=== PATIENT | female | born 1990 | race Caucasian/White ===

== ENCOUNTER 2020-12-11 21:25 | Emergency (ER) | payer OTHER ==
--- NOTE | 2020-12-11 22:16 | EDM.PDOC ---
ED HPI GENERAL MEDICAL PROBLEM - General Chief Complaint: ENT Problem Stated Complaint: TOOTH PAIN Time Seen by Provider: 12/11/20 21:55 Source of Information: Reports: Patient History Limitations: Reports: No Limitations - History of Present Illness INITIAL COMMENTS - FREE TEXT/NARRATIVE: 30-year-old female with diffuse dental decay, diagnosed periodontal abscesses and the need for tooth extraction presents for pain control. She saw her dentist yesterday, they started her on penicillin which she filled today and started but they told her if she has significant pain she should go to the emergency room. She has no fevers or chills, no significant facial swelling, but the pain especially in the upper incisors and canines are persistent even after ibuprofen and Tylenol. Onset: Unknown/Unsure Duration: Chronic Improves with: Reports: Other (Ibuprofen helps minimally) Associated Symptoms: Reports: Malaise. 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: Musculoskeletal History: Reports: Fracture Neurological History: Reports: Brain Injury Psychiatric History: Reports: Anxiety, Depression - Infectious Disease History Infectious Disease History: Reports: Chicken Pox, Mononucleosis, Novel Coronavirus Social & Family History - Tobacco Use Tobacco Use Status *Q: Current Every Day Tobacco User Years of Tobacco use: 2 Packs/Tins Daily: 1 - Caffeine Use Caffeine Use: Reports: Energy Drinks - Recreational Drug Use Recreational Drug Use: Yes Drug Use in Last 12 Months: Yes Recreational Drug Type: Reports: Marijuana/Hashish Recreational Drug Use Frequency: Monthly ED ROS ENT - Review of Systems Review Of Systems: See Below Constitutional: Denies: Fever, Chills HEENT: Reports: Dental Pain Respiratory: Denies: Shortness of Breath Cardiovascular: Denies: Chest Pain GI/Abdominal: Denies: Nausea, Vomiting Skin: Reports: No Symptoms Neurological: Denies: Headache Psychiatric: Reports: No Symptoms ED EXAM, ENT - Physical Exam Exam: See Below Exam Limited By: No Limitations General Appearance: Alert, No Apparent Distress (Looks uncomfortable but not distressed) Mouth/Throat: Other (Widespread significant dental decay is present with gingival erythema and swelling especially of the maxillary front teeth) Course - Vital Signs Last Recorded V/S: Last Vital Signs Temp 97.5 F 12/11/20 21:54 Pulse 97 12/11/20 21:54 Resp 16 12/11/20 21:54 BP 116/62 12/11/20 21:54 Pulse Ox 96 12/11/20 21:54 - Re-Assessments/Exams Free Text/Narrative Re-Assessment/Exam: 12/12/20 01:28 Patient is going to continue her penicillin as prescribed, she was given 20 hydrocodone to use sparingly to cover extra pain not controlled with ibuprofen. A COMPUTING SYSTEMS MECHANIC search was done on this patient, no narcotics have been prescribed in the last year. She has a dental appointment in 2 weeks. Departure - Departure Time of Disposition: 22:17 Disposition: Home, Self-Care 01 Clinical Impression: Pain due to dental caries, Dental abscess - Discharge Information Instructions: Dental Abscess, [id number] Referrals: PCP,None [Primary Care Provider] - Forms: ED Department Discharge Care Plan Goals: Continue your antibiotic as prescribed, take Prilosec every day to protect her stomach and continue with ibuprofen and Tylenol for pain control. Add stronger pain medication as prescribed if needed and recheck if not improving satisfactorily in the next 3 or 4 days. Sepsis Event Note (ED) - Evaluation Sepsis Screening Result: No Definite Risk - Focused Exam Vital Signs: Vital Signs Temp Pulse Resp BP Pulse Ox 12/11/20 21:54 97.5 F 97 16 116/62 96 12/11/20 21:45 97.5 F 97 16 116/62 96
== END 2020-12-11 22:23 | disposition home or self-care (01) ==
LOC: JP.ED 21:25
DX: K04.7 Periapical abscess without sinus (principal); K02.9 Dental caries, unspecified; Z72.0 Tobacco use
CPT/HCPCS: 99282